=== PATIENT | female | born 1970 | race Caucasian/White ===

== ENCOUNTER 2018-09-11 15:44 | Emergency (ER) | payer SELFPAY ==
[~2018-09-11] VITALS: Ht 162.6 cm; Wt 72.6 kg
[~2018-09-11 15:44] MED LIST: Z.0.LISINOPRIL-HCT1 PO
[2018-09-11] MEDS ORDERED: TOPAMAX25 MG PEG (17:58)
[2018-09-11] MEDS ORDERED: KETOROLAC TROMETHAMINE 30 MG/ML VIAL IV NR (18:09)
[2018-09-11] MEDS ORDERED: DIAZEPAM 2 MG TAB PO NR (18:15)
== END 2018-09-11 18:56 | disposition home or self-care (01) ==
LOC: ER 15:44
DX: M79.662 Pain in left lower leg (principal); M79.652 Pain in left thigh; S86.112A Strain of other muscle(s) and tendon(s) of posterior muscle group at lower leg level, left leg, initial encounter; S76.812A Strain of other specified muscles, fascia and tendons at thigh level, left thigh, initial encounter
CPT/HCPCS: 99283; J1885